=== PATIENT | male | born 1985 | race Caucasian/White ===

== ENCOUNTER 2019-04-17 23:45 | Emergency (ER) | payer SELFPAY ==
[~2019-04-17] VITALS: Ht 190.5 cm; Wt 73.0 kg
[2019-04-17 23:50] VITALS: BP 141/90
--- NOTE | 2019-04-17 23:53 | NUR ---
TO LOBBY A/W BED AMBULATORY
--- NOTE | 2019-04-18 00:29 | NUR ---
pt ambulated to bed 03
--- NOTE | 2019-04-18 01:05 | NUR ---
33 YEAR OLD MALE COMPLAINS OF SLIGHT NOSE PAIN 2/, NOSE IS VISIBLY REDDENED. PATIENT STATES HIS NOSE HAS BEEN GRADUALLY GETTING WORSE OVER THE PAST 4 DAYS. PATIENT DENIES N/V/D. PATIENT ALERT AND ORIENTED, BREATHING EVEN AND UNLABORED, SKIN WARM AND DRY. BED IN LOWEST POSITION, LOCKED, BED RAIL UPX1.
[2019-04-18 01:11] VITALS: BP 140/87
--- NOTE | 2019-04-18 01:11 | NUR ---
Patient discharged with v/s stable. Written and verbal after care instructions ABOUT CELLULITIS AND SKIN INFECTIONS given and explained. Patient alert, oriented and verbalized understanding of instructions. Ambulatory with steady gait. All questions addressed prior to discharge. ID band removed. Patient advised to follow up with PMD. Rx of BACTRIM AND NAPROSYN given. Patient educated on indication of medication including possible reaction and side effects. Opportunity to ask questions provided and answered.
== END 2019-04-18 01:11 | disposition home or self-care (01) ==
LOC: MED 23:45
DX: J34.0 Abscess, furuncle and carbuncle of nose (principal)
CPT/HCPCS: 99283

== ENCOUNTER 2019-12-11 04:30 | Emergency (ER) | payer MEDICAID ==
[~2019-12-11] VITALS: Ht 190.5 cm; Wt 68.7 kg
--- NOTE | 2019-12-11 04:44 | NUR ---
PT TAKEN TO BED 11
[2019-12-11 04:48] VITALS: BP 118/89
--- NOTE | 2019-12-11 04:48 | NUR ---
34 year old male presenting to ED with c/o throat complaint x 2 hours. states " i feel like im going to , my throat is feeling its fully closed. " clb sounds. no stridor s/p auscultation. denies any other s/sx. pt pacing while in bed. denies any pain. awaiting MSE. pmhx: denies nka
[2019-12-11 04:52] VITALS: BP 118/89
--- NOTE | 2019-12-11 04:57 | NUR ---
Timo singh in [facility] - 12/11/19 at [address] Cuevas examining patient.
--- NOTE | 2019-12-11 05:03 | NUR ---
PATIENT LEFT WITHOUT BEING SEEN BY DR. lizama. NO FURTHER CARE PROVIDED FOR PATIENT.
== END 2019-12-11 05:03 | disposition left against medical advice (07) ==
LOC: MED 04:30
DX: R07.0 Pain in throat (principal); Z53.21 Procedure and treatment not carried out due to patient leaving prior to being seen by health care provider

== ENCOUNTER 2020-04-02 23:40 | Emergency (ER) | payer SELFPAY ==
[~2020-04-02] VITALS: Ht 190.5 cm; Wt 72.6 kg
[2020-04-02 23:45] VITALS: BP 94/73
--- NOTE | 2020-04-03 02:52 | NUR ---
PATIENT BIB [facility] [employer]. PATIENT EXAMINED BY . PATIENT MEDICALLY CLEARED AND RELEASED IN CUSTODY IN STABLE CONDITION. ORIGINAL PRE-BOOK FORM GIVEN TO OFFICER BITA, #0041.
== END 2020-04-03 02:52 ==
LOC: MED 23:40
DX: R25.2 Cramp and spasm (principal); Z59.0 Homelessness
CPT/HCPCS: 36415; 73590; 82550; 82553; 93971; 99285

== ENCOUNTER 2020-11-11 03:05 | Emergency (ER) | payer MEDICAID ==
[~2020-11-11] VITALS: Ht 190.5 cm; Wt 72.6 kg
--- NOTE | 2020-11-11 03:05 | NUR ---
TYRONE SALOMON, PREBOOK. TAKEN TO CHAIR C
--- NOTE | 2020-11-11 03:16 | NUR ---
Dr. Albarran examining patient.
[2020-11-11] MEDS ORDERED: SULF-59 PO (03:25)
[2020-11-11] MEDS ORDERED: IBUP-2218 PO (03:25)
[2020-11-11] MEDS ORDERED: SULFAMETH/TRIMETH DS 800/160MG 1 TAB PO ONE (03:30)
[2020-11-11] MEDS ORDERED: IBUPROFEN 800 MG TAB PO ONE (03:30)
[2020-11-11 03:36] VITALS: BP_SYST 77
--- NOTE | 2020-11-11 03:42 | NUR ---
[employer] [place] [employer] FOR MEDICAL CLEARANCE, OK TO BOOK, APPROX GOLF BALL SIZED ULCER NOTED TO TOP OF RIGHT FOOT. EDGES ARE PINK
[2020-11-11 03:45] VITALS: BP 111/77
--- NOTE | 2020-11-11 03:45 | NUR ---
Patient discharged with v/s stable. Written and verbal after care instructions given and explained. Patient alert, oriented and verbalized understanding of instructions. Ambulatory with steady gait, IN CUSTODY All questions addressed prior to discharge. ID band removed. Patient advised to follow up with PMD. Rx of BACTRIM AND IBUPROFEN given. Patient educated on indication of medication including possible reaction and side effects. Opportunity to ask questions provided and answered.
== END 2020-11-11 03:45 ==
LOC: MED 03:05
DX: L03.116 Cellulitis of left lower limb (principal); L03.011 Cellulitis of right finger
CPT/HCPCS: 99283